=== PATIENT | female | born 1990 | race Caucasian/White ===

== ENCOUNTER 2017-05-02 09:02 | Day surgery (SDC) | payer OTHER ==
[~2017-05-02] VITALS: Ht 162.6 cm; Wt 49.8 kg
[2017-05-02] MEDS ORDERED: METFORMIN (09:54)
[2017-05-02] MEDS ORDERED: LYRICA (09:54)
[2017-05-02] MEDS ORDERED: LANTUS (09:54)
[2017-05-02 09:56] VITALS: Ht 162.6 cm; Wt 49.8 kg
[2017-05-02 10:26] VITALS: BP 97/62; PULSE 66; RESP 16
--- NOTE | 2017-05-02 10:43 | OPPN ---
Date/Time of Note Date/Time of Note DATE: 05/02/17 TIME: 10:39 Proc Note GI Procedure date: May 02, 2017 Pre-procedure Diagnosis History of for persistent abdominal pain unresponsive to routine therapy rule out peptic ulcer disease gastritis Post-procedure Diagnosis Diffuse mild gastritis Duodenitis Biopsies were done Operation Performed EGD Anesthesia Type: MAC Anesthesiologist: ELIJAH SEE MD Estimated blood loss: none Transfusion Required: no Specimen: none Grafts/Implants: none Complications: no Complications None Pt Condition post procedure: stable Indications Chronic abdominal pain Operative\Procedure Findings After informed written consent is obtained patient was ostial in the left lateral side Intravenous anesthesia was given by anesthesiology Dr. Burnette The patient become somnolent Olympus video upper endoscope was introduced into the oropharynx then into the esophagus. The entire esophagus appeared normal Stomach was examined which showed several areas of erythema some of them are linear erythematous mucosal surface Biopsy was obtained from the antrum the lesser curvature of the fundus to rule out H. pylori infection Because of the duodenum showed evidence of whitish grease mucosal surface in the anterior duodenum up to third portion Biopsies were obtained to rule out any evidence of opportunistic infection [place] with the stem was withdrawn and the procedure was terminated plan recommend omeprazole 40 mg a day in the morning for 2 months Wait for the pathology cc dr curtis Please send copy to [facility] in [place] Lyon MD May 02, 2017 10:42
[2017-05-02] MEDS ORDERED: PROPOFOL 20 ML ONE (10:45)
[2017-05-02 11:31] VITALS: BP 97/69; PULSE 71; RESP 14
== END 2017-05-02 11:40 | disposition home or self-care (01) ==
LOC: GIL 09:02
PROVIDERS: ATTEND Internal Medicine Gastroenterology
DX: K29.50 Unspecified chronic gastritis without bleeding (principal); K29.80 Duodenitis without bleeding; E11.9 Type 2 diabetes mellitus without complications; Z79.4 Long term (current) use of insulin
CPT/HCPCS: 43239; 82962; 88305; 88313; Z7610